=== PATIENT | female | born 1995 | race African-American/Black ===

== ENCOUNTER 2022-04-23 12:09 | Inpatient (IN) | payer OTHER ==
[~2022-04-23] VITALS: Ht 160 cm; Wt 106.6 kg
[2022-04-23 12:18] VITALS: BP 135/90
--- NOTE | 2022-04-23 13:00 | NUR ---
Patient was wheelchair assisted to bed 8.
[2022-04-23] MEDS ORDERED: NACL 0.9% 1,000 ML IV ONE (13:05)
[2022-04-23] MEDS ORDERED: PIPERACILLIN/TAZOBACTAM 3.375 GM in DEXTROSE 5% 50 ML IV ONE (13:30)
[2022-04-23] MEDS ORDERED: VANCOMYCIN 1,000 MG in DEXTROSE 5% 250 ML IV ONE (13:30)
[2022-04-23 13:47] LABS: BASOPHILS # (AUTO) 0.1 K/uL (0.00-0.22); BASOPHILS % (AUTO) 0.5 % (0.0-2.0); EOSINOPHILS % (AUTO) 0.2 % (0.0-4.0); HEMOGLOBIN 13.6 g/dL (12.0-16.0); LYMPHOCYTES # (AUTO) 1.8 K/uL (2.5-16.5); LYMPHOCYTES % (AUTO) 17.9 % (20.5-51.1); MEAN CORPUSCULAR HEMOGLOBIN 31 pg (27-31); MEAN CORPUSCULAR HGB CONC 34 g/dL (33-37); MEAN CORPUSCULAR VOLUME 90.6 fL (80-94); MONOCYTES # (AUTO) 0.4 K/uL (0.8-1.0); MONOCYTES % (AUTO) 4.2 % (1.7-9.3); NEUTROPHILS # (AUTO) 7.7 K/uL (1.8-7.7); NEUTROPHILS % (AUTO) 77.2 % (42.2-75.2); PLATELET COUNT (AUTO) 316 K/uL (140-450); RED BLOOD CELL COUNT(AUTO) 4.42 MIL/uL (4.20-5.40); RED CELL DISTRIBUTION WIDTH 13.7 % (11.6-13.7)
--- NOTE | 2022-04-23 13:48 | NUR ---
X-Ray at bedside
--- NOTE | 2022-04-23 13:51 | NUR ---
med rec complete
[2022-04-23 13:58] LABS: ANION GAP 12.7 (8-16); CREATININE 0.8 mg/dL (0.6-1.3); POTASSIUM 3.7 mmol/L (3.5-5.1)
--- NOTE | 2022-04-23 14:00 | NUR ---
27 y/o female bib self with c/o left foot pain since January 2022. Per patient, she stepped on glass, went to the ER and was cleared to go home. Patient has been having ongoing pain, swelling redness and heat to left foot. Patient reports pus draining from puncture site. Medical History: Denies NKDA
[2022-04-23 14:04] LABS: ALBUMIN 3.5 g/dL (3.4-5.0); TOTAL BILIRUBIN 0.4 mg/dL (0.0-1.0)
[2022-04-23] MEDS ORDERED: MAGNESIUM OXIDE 400 MG TAB PO PRN (14:15)
[2022-04-23] MEDS ORDERED: POTASSIUM CHLORIDE 10 MEQ TABER PO PRN (14:15)
[2022-04-23] MEDS ORDERED: HYDROcodone/APAP 5/325 MG 1 TAB TAB PO PRN (14:15)
[2022-04-23] MEDS ORDERED: KCL 20 MEQ IN 100 mL PREMIX 200 ML IV PRN (14:15)
[2022-04-23] MEDS ORDERED: ACETAMINOPHEN 325 MG TAB PO PRN (14:15)
[2022-04-23] MEDS ORDERED: ONDANSETRON 4 MG/2 ML VIAL IVP PRN (14:15)
[2022-04-23] MEDS ORDERED: VANCOMYCIN PER PHARMACY MC PRN (14:15)
[2022-04-23] MEDS ORDERED: MAG SULF 2000 MG/WATER PREMIX 50 ML IV PRN (14:15)
[2022-04-23] MEDS ORDERED: PIPERACILLIN/TAZOBACTAM 3.375 GM VIAL IV ONE (14:37)
[2022-04-23] MEDS ORDERED: VANCOMYCIN HCL 1.25 GM in DEXTROSE 5% 250 ML IV SCH (16:00)
--- NOTE | 2022-04-23 16:38 | NUR ---
Dr. Kerns, admitting doctor, evaluating patient at bedside.
[2022-04-23] MEDS: VANCOMYCIN 1.25GM PREMIX 250 ML IV SCH (16:58)
--- NOTE | 2022-04-23 17:22 | NUR ---
Patient was offered dinner tray, patient is sitting up eating dinner.
[2022-04-23] MEDS ORDERED: cefTRIAXone 1,000 MG VIAL ONE (18:52)
--- NOTE | 2022-04-23 19:20 | NUR ---
Report given to MIGUEL Andersen for transfer of care.
--- NOTE | 2022-04-23 19:30 | NUR ---
Patient received on bed lying comfortably and awake. Alert and oriented x4. No acute distress. No complaints of pain or discomfort. Respirations even and unlabored.
--- NOTE | 2022-04-23 21:42 | NUR ---
Called [facility] to give report to the receiving nurse. Receiving nurse said will call back after a few minutes.
--- NOTE | 2022-04-23 21:51 | NUR ---
Patient will be admitted to care of Dr. Kerns. Admited to [facility]. Will go to room 106B. Belongings list completed. Report to MIGUEL Cam.
[2022-04-23 22:44] VITALS: BP 134/84
[2022-04-23 22:59] VITALS: BP 132/82
--- NOTE | 2022-04-24 03:42 | NUR ---
PATIENT STABLE VITALS SIGNS IN NORMAL LIMITS NOT COMPLAINING OF PAIN AT THIS TIME
[2022-04-24 04:28] VITALS: BP 132/72
[2022-04-24] MEDS: VANCOMYCIN 1.25GM PREMIX 250 ML IV SCH ×2 (04:30→15:28)
[2022-04-24] MEDS ORDERED: VANCOMYCIN 500 MG VIAL ONE (04:32)
[2022-04-24] MEDS ORDERED: VANCOMYCIN 1,000 MG VIAL ONE (04:33)
[2022-04-24] MEDS: MORPHINE SULFATE 2 MG/ML SYR IVP PRN ×2 (05:11→20:24)
--- NOTE | 2022-04-24 06:54 | NUR ---
PATIENT STABLE VITALS SIGNS IN NORMAL LIMITS NOT COMPLAINING OF PAIN AT THIS TIME
[2022-04-24 07:02] LABS: BASOPHILS % (AUTO) 0.4 % (0.0-2.0); EOSINOPHILS # (AUTO) 0.1 K/uL (0-0.4); EOSINOPHILS % (AUTO) 0.7 % (0.0-4.0); HEMATOCRIT 37.1 % (36-48); HEMOGLOBIN 12.5 g/dL (12.0-16.0); LYMPHOCYTES % (AUTO) 27.6 % (20.5-51.1); MEAN CORPUSCULAR HEMOGLOBIN 31 pg (27-31); MEAN CORPUSCULAR HGB CONC 34 g/dL (33-37); MEAN CORPUSCULAR VOLUME 91.5 fL (80-94); MONOCYTES # (AUTO) 0.4 K/uL (0.8-1.0); MONOCYTES % (AUTO) 5.2 % (1.7-9.3); NEUTROPHILS # (AUTO) 4.8 K/uL (1.8-7.7); NEUTROPHILS % (AUTO) 66.1 % (42.2-75.2); PLATELET COUNT (AUTO) 280 K/uL (140-450); RED BLOOD CELL COUNT(AUTO) 4.05 MIL/uL (4.20-5.40); RED CELL DISTRIBUTION WIDTH 13.4 % (11.6-13.7); WHITE BLOOD COUNT (AUTO) 7.3 K/uL (4.8-10.8)
[2022-04-24 07:07] LABS: ANION GAP 8.6 (8-16); CARBON DIOXIDE 26.9 mmol/L (21-32); CREATININE 0.9 mg/dL (0.6-1.3); POTASSIUM 3.5 mmol/L (3.5-5.1); TOTAL BILIRUBIN 0.4 mg/dL (0.0-1.0)
--- NOTE | 2022-04-24 10:27 | NUR ---
PATIENT HAS BEEN SCREENED AND CATEGORIZED LOW NUTRITION RISK. PATIENT WILL BE SEEN WITHIN 7 DAYS OF ADMISSION. 04/23/22-04/30/[address]
--- NOTE | 2022-04-24 12:04 | NUR ---
PATIENT TO OPERATING ROOM FOR LEFT FOOT PROCEDURE WITH DOCTOR PADRON
[2022-04-24] MEDS ORDERED: HYDROGEN PEROXIDE 3% 240 ML BTL TP ONE (12:15)
[2022-04-24] MEDS ORDERED: BUPIVACAINE-MPF 0.5% 30 ML VIAL INJ ONE (12:17)
[2022-04-24] MEDS ORDERED: hydrALAZINE 20 MG/ML VIAL IVP PRN (12:26)
[2022-04-24] MEDS ORDERED: LABETALOL 20 MG/4 ML VIAL IVP PRN (12:26)
[2022-04-24] MEDS ORDERED: LIDOCAINE/EPI MPF 2%1:200000 10 ML VIAL INJ ONE (12:26)
[2022-04-24] MEDS ORDERED: BUPIVACAINE-MPF 0.25% 30 ML VIAL INJ ONE (12:26)
[2022-04-24] MEDS ORDERED: LIDOCAINE MPF 1% 20 ML ONE (12:38)
[2022-04-24] MEDS ORDERED: ATROPINE 0.4 MG/ML VIAL ONE (13:09)
[2022-04-24] MEDS ORDERED: PROPOFOL 200 MG/20 ML VIAL IV ONE ×2 (13:09)
[2022-04-24] MEDS ORDERED: KETOROLAC 30 MG/ML VIAL ONE (13:09)
[2022-04-24] MEDS ORDERED: ONDANSETRON 4 MG/2 ML VIAL ONE (13:10)
[2022-04-24] MEDS ORDERED: LACTATED RINGERS 1,000 ML IV SCH (13:30)
[2022-04-24] MEDS ORDERED: METOCLOPRAMIDE 10 MG/2 ML INJ VIAL IVP PRN (13:30)
[2022-04-24] MEDS ORDERED: HYDROmorphone 1 MG/ML AMP IVP PRN (13:30)
--- NOTE | 2022-04-24 15:27 | NUR ---
DC PLANNING DC PLANNING ASSESSMENT COMPLETE PLEASE REFER TO ASSESSMENT FOR ADDITIONAL DETAILS PT REPORTS DC PLAN IS TO RETURN HOME, WITH MOTHER PROVIDING TRANSPORTATION ONCE CLEARED TO DC. Addendum: 04/24/22 at 1528 by Amador CROCKER Amended: Links added.
[2022-04-24 18:57] VITALS: BP 137/74
[2022-04-24 20:20] VITALS: BP 125/66
[2022-04-25] VITALS: BP 118/68
[2022-04-25] MEDS: MORPHINE SULFATE 2 MG/ML SYR IVP PRN ×2 (01:35→19:42)
[2022-04-25 04:00] VITALS: BP 105/70
[2022-04-25] MEDS: VANCOMYCIN 1.25GM PREMIX 250 ML IV SCH ×2 (04:25→16:04)
[2022-04-25 06:01] LABS: BASOPHILS % (AUTO) 0.3 % (0.0-2.0); EOSINOPHILS # (AUTO) 0.1 K/uL (0-0.4); EOSINOPHILS % (AUTO) 0.8 % (0.0-4.0); HEMATOCRIT 35.3 % (36-48); HEMOGLOBIN 11.9 g/dL (12.0-16.0); LYMPHOCYTES # (AUTO) 2.2 K/uL (2.5-16.5); LYMPHOCYTES % (AUTO) 32.4 % (20.5-51.1); MEAN CORPUSCULAR HEMOGLOBIN 31 pg (27-31); MEAN CORPUSCULAR HGB CONC 34 g/dL (33-37); MONOCYTES # (AUTO) 0.4 K/uL (0.8-1.0); MONOCYTES % (AUTO) 6.5 % (1.7-9.3); PLATELET COUNT (AUTO) 270 K/uL (140-450); RED BLOOD CELL COUNT(AUTO) 3.83 MIL/uL (4.20-5.40); RED CELL DISTRIBUTION WIDTH 13.7 % (11.6-13.7); WHITE BLOOD COUNT (AUTO) 6.7 K/uL (4.8-10.8)
[2022-04-25 06:39] LABS: ALBUMIN 2.8 g/dL (3.4-5.0); ANION GAP 9.4 (8-16); CARBON DIOXIDE 27.3 mmol/L (21-32); CREATININE 0.8 mg/dL (0.6-1.3); MAGNESIUM 1.8 mg/dL (1.8-2.4); POTASSIUM 3.7 mmol/L (3.5-5.1); TOTAL BILIRUBIN 0.3 mg/dL (0.0-1.0)
[2022-04-25 12:53] VITALS: BP 115/65
[2022-04-25 16:00] VITALS: BP 137/87
--- NOTE | 2022-04-25 17:20 | NUR ---
NORCO X1 FOR LEFT FOOT PAIN WITH EFFECTIVE RELIEF. VSS. AFEBRILE. IV ABX CONTINUED. ALL NEEDS MEDS MET, SAFETY AND COMFORT MEASURES MAINTAINED, CALL LIGHT WITHIN REACH.
[2022-04-25 20:00] VITALS: BP 125/75
--- NOTE | 2022-04-25 23:13 | NUR ---
DR. FREGOSO ROUNDS , DRESSING CHANGE , PROCEDURE TOLERATING BY THE PT , WILL CONT. TO MONITOR
--- NOTE | 2022-04-26 00:30 | NUR ---
PT IS UNSTEADY GAIT DUE THE PAINFUL SUGICAL SITES WHEN SHE BEARING HER WT WHEN SHE WALKS - WILL PUT ON FALL RISK PREVENTION PROTOCOL , STANDBY ASSIST - WILL ENDORSE .
[2022-04-26] MEDS: VANCOMYCIN 1.25GM PREMIX 250 ML IV SCH ×2 (00:50→09:46)
--- NOTE | 2022-04-26 01:40 | NUR ---
INFILTRATED IV SITE , REMOVE NEEDLE , NEEDLE INTACT AND PATENT , WILL RE INSERT NEW ONE . Addendum: 04/26/22 at 0221 by Aliya Shah RN MIN. BLEEDING , WILL CONT. TO MONITOR .
--- NOTE | 2022-04-26 01:42 | NUR ---
NEW IV CANNULLA INSERTED G 22 AT R FOREARM , PROCEDURE TOLERATED WELL , MIN. BLEEDING , WILL CONT. TO MONITOR .
[2022-04-26 01:50] VITALS: BP 147/78
--- NOTE | 2022-04-26 01:50 | NUR ---
C/O PAIN , BP 147/78 , IL 64 ( BY PALPATION ) RR 18 , O2 SAT 98 % , SHE RATES THE PAIN 7/10 - WILL MEDICATE , WILL CONT. TO MONITOR , CALL LIGHT WITHIN REACH .
[2022-04-26] MEDS: MORPHINE SULFATE 2 MG/ML SYR IVP PRN ×2 (01:55→10:37)
--- NOTE | 2022-04-26 04:00 | NUR ---
ROUNDS , NO S/SX OF ACUTE DISTRESS NOTED , WILL CONT. TO MONITOR , CALL LIGHT WITHIN REACH .
--- NOTE | 2022-04-26 06:00 | NUR ---
ROUNDS , NO S/SX OF ACUTE DISTRESS NOTED , WILL CONT. TO MONITOR , CALL LIGHT WITHIN REACH .
[2022-04-26 06:23] LABS: BASOPHILS % (AUTO) 0.4 % (0.0-2.0); EOSINOPHILS % (AUTO) 0.4 % (0.0-4.0); HEMATOCRIT 38.4 % (36-48); HEMOGLOBIN 12.9 g/dL (12.0-16.0); LYMPHOCYTES # (AUTO) 2.1 K/uL (2.5-16.5); LYMPHOCYTES % (AUTO) 28.4 % (20.5-51.1); MEAN CORPUSCULAR HEMOGLOBIN 31 pg (27-31); MEAN CORPUSCULAR HGB CONC 34 g/dL (33-37); MEAN CORPUSCULAR VOLUME 91.2 fL (80-94); MONOCYTES # (AUTO) 0.4 K/uL (0.8-1.0); MONOCYTES % (AUTO) 5.1 % (1.7-9.3); NEUTROPHILS # (AUTO) 4.8 K/uL (1.8-7.7); NEUTROPHILS % (AUTO) 65.7 % (42.2-75.2); PLATELET COUNT (AUTO) 288 K/uL (140-450); RED CELL DISTRIBUTION WIDTH 13.5 % (11.6-13.7); WHITE BLOOD COUNT (AUTO) 7.3 K/uL (4.8-10.8)
[2022-04-26 06:55] LABS: ANION GAP 12.3 (8-16); CARBON DIOXIDE 24.3 mmol/L (21-32); CREATININE 0.8 mg/dL (0.6-1.3); MAGNESIUM 1.7 mg/dL (1.8-2.4); POTASSIUM 3.6 mmol/L (3.5-5.1); TOTAL BILIRUBIN 0.4 mg/dL (0.0-1.0)
--- NOTE | 2022-04-26 07:35 | NUR ---
ENDORSED FOR CONT. OF CARE , SLEEPING , AWAKEABLE .
--- NOTE | 2022-04-26 07:36 | NUR ---
RECEIVED REPORT FROM FIELD CHECKER NURSE, GONZÁLEZ, FOR CONTINUITY OF CARE. PT IS SLEEPING AT THIS TIME. RESPIRATIONS ARE EVEN AND UNLABORED ON ROOM AIR. NO SIGNS OF DISTRESS NOTED. PT IS ALERT AND ORIENTED X4, ABLE TO VERBALIZE NEEDS, ABLE TO FOLLOW COMMANDS. PT IS ON REGULAR DIET, TOLERATING WELL. ABD IS NONTENDER, NONDISTENDED WITH BOWEL SOUNDS PRESENT. PER FIELD CHECKER NURSE, PT LAST BOWEL MOVEMENT WAS YESTERDAY. PT HAS FULL ROM TO UPPER AND LOWER EXTREMITIES. PT HAS IV TO RFA, 22G. IV INTACT AND PATENT. SKIN IS WARM AND DRY. PT IS LOST I&D, DRESSING INTACT. NO DRAINAGE NOTED. CALL LIGHT WITHIN REACH. ALL SAFETY MEASURES IN PLACE.
[2022-04-26 08:00] VITALS: BP 114/52
[2022-04-26 09:26] LABS: ALBUMIN 3.1 g/dL (3.4-5.0)
--- NOTE | 2022-04-26 10:05 | NUR ---
DID ROUNDS ON PT. PT IN BED ON THE PHONE AT THIS TIME. NO COMPLAINTS OF PAIN OR DISCOMFORT.
[2022-04-26] MEDS ORDERED: AMOX-1230 PO (12:58)
[2022-04-26] MEDS ORDERED: ACET-9525 PO (12:58)
--- NOTE | 2022-04-26 13:08 | NUR ---
LAB CALLED TO REPORT PT FOOT WOUND CULTURE RESULT: POSITIVE FOR STREP GROUP A. DR GASTELUM MADE AWARE.
[2022-04-26 14:16] VITALS: BP 114/52
--- NOTE | 2022-04-26 14:55 | NUR ---
WENT OVER DISCHARGE PAPERWORK WITH PT. ANSWERED ALL QUESTIONS. PT SIGNED ALL PAPERWORK. REMOVED IV. IV CATHETER INTACT. PT AWAITING FAMILY TO PICK HER UP.
--- NOTE | 2022-04-26 14:58 | NUR ---
LAB CALLED WITH CRITICAL VALUE, VANCOMYCIN 17.6.
--- NOTE | 2022-04-26 15:22 | NUR ---
PT DISCHARGED HOME WITH FAMILY MEMBER. ALL BELONGINGS TAKEN UPON DISCHARGE.
== END 2022-04-26 15:37 | disposition home or self-care (01) | DRG 364 ==
LOC: MED 12:09 → MMU 14:18 → MTU 18:31
PROVIDERS: ADMIT Internal Medicine; ATTEND Internal Medicine
PROC: 0J9R0ZZ Drainage of Left Foot Subcutaneous Tissue and Fascia, Open Approach (ICD-10-PCS; principal; 2022-04-24 12:15)
DX: L03.116 Cellulitis of left lower limb (principal); R71.0 Precipitous drop in hematocrit; L02.612 Cutaneous abscess of left foot; E66.01 Morbid (severe) obesity due to excess calories; Z68.41 Body mass index [BMI] 40.0-44.9, adult; Z20.822 Contact with and (suspected) exposure to COVID-19; M79.5 Residual foreign body in soft tissue
CPT/HCPCS: 36415; 73630; 80053; 80202; 81025; 83605; 83735; 85025; 87040; 87070; 87075; 87081; 87205; 96361; 96365; 99285; J0461; J0696; J1885; J2001; J2270; J2405; J2543; J2704; J3370; J3372; J3490; J7060; J7120; Q0092